=== PATIENT | male | born 1965 | race Caucasian/White ===

== ENCOUNTER 2021-04-02 00:15 | Inpatient (IN) ==
[2021-04-02] MEDS ORDERED: ONDANSETRON INJ 2 MG/ML 2 ML VIAL IV STA (00:54)
[2021-04-02] MEDS ORDERED: SODIUM CHLORIDE 0.9% 1000ML 1,000 ML IV SCH (01:00)
[2021-04-02 01:06] LABS: Basophils # (auto) 0.02 K/uL (0-0.2); Basophils % (auto) 0.2 %; Eosinophils # (auto) 0.04 K/uL (0-0.5); Eosinophils % (auto) 0.5 %; Hematocrit (blood only) 42.4 % (42-52); Hemoglobin 14.9 g/dL (14.0-18.0); Immature Granulocytes # (auto) 0.02 K/uL (0.00-0.02); Immature Granulocytes % (auto) 0.2 %; Lymphocytes # (auto) 0.86 K/uL (1.2-3.4); Lymphocytes % (auto) 10.7 %; Mean Corpuscular Hemoglobin 30.9 pg (25-34); Mean Corpuscular Hgb Conc 35.1 g/dL (32-36); Mean Platelet Volume 10.6 fL (7.4-10.4); Monocytes # (auto) 0.81 K/uL (0.11-0.59); Monocytes % (auto) 10.1 %; Neutrophils # (auto) 6.29 K/uL (1.4-6.5); Neutrophils % (auto) 78.3 %; Platelet Count 241 K/uL (130-400); RDW Coefficient of Variation 13.4 % (11.5-14.5); RDW Standard Deviation 43.2 fL (36.4-46.3); Red Blood Count 4.82 M/uL (4.7-6.1); White Blood Count 8.04 K/uL (4.8-10.8)
[2021-04-02 01:16] LABS: Appearance Urine Clear (Clear); Bacteria Urine Automated Negative (Negative); Bilirubin Urine Negative (Negative); Blood Urine Negative (Negative); Color Urine Dark Yellow; Glucose Urine UA Negative (Negative); Ketones Urine Trace (Negative); Leukocyte Esterase Urine Negative (Negative); Nitrite Urine Negative (Negative); Protein Urine 1+ (Negative); RBC Urine Automated 0-4 /hpf (0-4); Specific Gravity Urine 1.032 (1.000-1.030); Urobilinogen Urine Negative (Negative)
[2021-04-02 01:17] LABS: Albumin Level 3.7 gm/dl (3.4-5.0); BUN Creatinine Ratio 26.3 (10-20); Calcium 8.6 mg/dl (8.5-10.1); Est GFR (African American) 93.5 ml/min; Est GFR (Non-African American) 80.7 ml/min; Potassium 3.2 mmol/L (3.5-5.1)
[2021-04-02 01:20] LABS: Albumin Globulin Ratio 1.1 (0.9-2); Globulin 3.3 gm/dl (2.5-4.0)
--- NOTE | 2021-04-02 01:29 | Emergency Department Note ---
History of Present Illness General Chief complaint: GI Assessment Stated complaint: abd pain, bowel blockage Time Seen by Provider: 04/02/21 00:41 History of Present Illness Maximum Pain Intensity: 2 This is a 55-year-old male that presents to the emergency department via private vehicle accompanied by female with complaints of "abdominal pain, bowel blockage". The patient notes that Wednesday morning he developed abdominal discomfort. This was generalized. He notes that several members of his family have similar symptoms and believe that a GI bug was going through the family. He then notes severe diarrhea and vomiting. He notes the abdominal pain has been severe intermittently. He attempted to move his bowels today with very little success. Last vomiting was yesterday. He denies any rectal pain. He feels very bloated in the upper right abdomen. Current pain 2/10. The patient does note that he is concerned he may have an ulcer as he did have vomit that was consistent of a black-like liquid in the recent past. Home Medications Medication Instructions Recorded Confirmed Type amlodipine 10 mg tablet 10 mg PO DAILY 04/02/21 04/02/21 History omeprazole 20 mg capsule,delayed 20 mg PO DAILY PRN 04/02/21 04/02/21 History release Allergies Allergy/AdvReac Type Severity Reaction Status Date / Time No Known Allergies Allergy Unknown Verified 07/17/04 15:54 Past Med/Surg History Medical History History of hemochromatosis History of indigestion HTN (hypertension) Surgical History (Updated 04/02/21 @ 21:02 by Sanket Méndez PA-C) No pertinent past surgical history Social History Smoking Status: Never smoker Hx Alcohol Use: Yes Alcohol type: beer and wine Hx Substance Use: No Preferred Language: Pashto Communication Ability: Effective Radiation Protection Specialist Required: No Beliefs That Will Affect Care: None Current Living Situation: Spouse Other Information That Helps Us Care for You: No Feels Safe at Home: Yes Safety Concerns: Feels Safe At This Time Assistive Devices: None Review of Systems A total of 10 systems reviewed and were otherwise negative Physical Exam Vital Signs Vital Signs - 24 hr 04/02/21 00:19 04/02/21 01:57 04/02/21 03:44 Temperature 36.6 C Temperature Source Temporal Artery Scan Pulse Rate 96 H 100 H Pulse Rate [Apical] 86 Respiratory Rate 16 18 20 Respiratory Effort / Characteristics Non-Labored Spontaneous Respiratory Depth Normal Respiratory Pattern Regular Blood Pressure 205/93 H 180/101 H Blood Pressure [Right Arm] 123/80 Blood Pressure Mean 130 127 Blood Pressure Mean [Right Arm] 94 Blood Pressure Position Sitting Blood Pressure Position [Right Arm] Lying Pulse Oximetry 95 92 96 Oxygen Delivery Method Room Air Room Air Room Air Sepsis Recent Fever Within 48 Hours No Sepsis New/Unexplained Change in Mental Status No Sepsis Action Taken by Nursing No Action Required 04/02/21 04:00 04/02/21 04:30 Temperature Temperature Source Pulse Rate 87 91 H Pulse Rate [Apical] Respiratory Rate 16 Respiratory Effort / Characteristics Respiratory Depth Respiratory Pattern Blood Pressure 151/89 H Blood Pressure [Right Arm] Blood Pressure Mean 109 Blood Pressure Mean [Right Arm] Blood Pressure Position Blood Pressure Position [Right Arm] Pulse Oximetry 93 Oxygen Delivery Method Room Air Sepsis Recent Fever Within 48 Hours Sepsis New/Unexplained Change in Mental Status Sepsis Action Taken by Nursing VITAL SIGNS - Vital signs and nursing notes were reviewed. Stable and afebrile. GENERAL -55-year-old male appearing his stated age who is in no acute distress. Communicates well with provider and answers questions appropriately. SKIN - Without rashes. No meningeal or petechial rash. HEAD - NC/AT. EYES - PERRL with EOMI bilaterally. Sclera anicteric. EARS - No deformities of external structures noted on gross examination bilater ally. NOSE - Midline and without cyanosis. No epistaxis or purulent drainage noted. MOUTH/OROPHARYNX - Without perioral cyanosis. NECK - Neck with FROM. No nuchal rigidity. LUNGS - Chest wall symmetric without accessory muscle use, intercostals retractions, or central cyanosis. Normal vesicular breath sounds CTA B/L. No wheezes, rales, or rhonchi appreciated. CARDIAC - RRR with S1/S2. No murmur, rubs, or gallops appreciated. ABDOMEN - Abdominal contour normal without pulsations or visible masses. BS normoactive all four quadrants. Abdomen is tympanic in the right upper quadrant with distention. Abdomen is nonrigid but is with generalized abdominal tenderness to palpation. EXTREMITIES - +5/5 strength noted in UE/LE bilaterally. NEUROLOGIC - Cranial nerves II through XII grossly intact. PSYCH - A&O, and cooperates fully with examiner. Pt is very pleasant and interacts well with examiner. Course Administered Medications Amlodipine Besylate (Amlodipine Besylate 5 Mg Tab) 10 mg PO QAM [facility]IS[facility] Stop: 05/02/21 08:59 Last Admin: 04/02/21 09:49 Dose: 10 mg Documented by: [id number] Pantoprazole Sodium 40 mg/ (Syringe) 10 mls @ 5 mls/min IV DAILY@1100 [facility]I Stop: 05/02/21 10:59 Last Admin: 04/02/21 11:07 Dose: 5 mls/min Documented by: [id number] Potassium Chloride/Sodium Chloride (Normal Saline W/20 Meq Kcl) 20 meq in 1,000 mls @ 125 mls/hr IV .Q8H [facility]ISI Stop: 05/02/21 11:29 Last Admin: 04/02/21 19:29 Dose: 125 mls/hr Documented by: [id number] Infusion: 04/02/21 19:29 Dose: 125 mls/hr Documented by: [id number] Admin: 04/02/21 11:41 Dose: 125 mls/hr Documented by: [id number] Insulin Aspart (Insulin Aspart 100 Units/Ml 3 Ml Pen) 0 units SC Q6 [facility]ISI Stop: 05/02/21 06:44 Last Admin: 04/02/21 18:03 Dose: Not Given Documented by: [id number] Cosigned by: [id number] Admin: 04/02/21 12:30 Dose: Not Given Documented by: [id number] Cosigned by: [id number] Admin: 04/02/21 09:48 Dose: 2 units Documented by: [id number] Cosigned by: [id number] Discontinued Medications Hydralazine HCl (Hydralazine Hcl 20 Mg/Ml Vial) 5 mg IV NOW [facility] Stop: 04/02/21 04:16 Last Admin: 04/02/21 05:23 Dose: Not Given Documented by: [id number] Sodium Chloride (Nss 1000ml) 1,000 mls @ 999 mls/hr IV .Q1H1M [facility]ISI Stop: 04/02/21 02:00 Last Infusion: 04/02/21 02:22 Dose: 0 mls/hr Documented by: [id number] Admin: 04/02/21 01:03 Dose: 999 mls/hr Documented by: [id number] Potassium Chloride 40 meq/ (Sodium Chloride) 1,020 mls @ 250 mls/hr IV .Q4H5M STA Stop: 04/02/21 07:37 Last Infusion: 04/02/21 08:30 Dose: 0 mls/hr Documented by: [id number] Admin: 04/02/21 03:56 Dose: 250 mls/hr Documented by: [id number] Pantoprazole Sodium 80 mg/ (Dextrose) 120 mls @ 400 mls/hr IV NOW STA Stop: 04/02/21 05:22 Last Infusion: 04/02/21 07:41 Dose: 0 mls/hr Documented by: [id number] Admin: 04/02/21 05:20 Dose: 400 mls/hr Documented by: [id number] Pantoprazole Sodium 40 mg/ (Dextrose) 100 mls @ 20 mls/hr IV Q5H [facility] Stop: 05/02/21 06:44 Last Admin: 04/02/21 08:30 Dose: Not Given Documented by: [id number] Potassium Chloride 40 meq/ (Sodium Chloride) 1,020 mls @ 60 mls/hr IV .Q17H [facility]ISI Stop: 05/02/21 07:59 Last Infusion: 04/02/21 11:44 Dose: 0 mls/hr Documented by: [id number] Admin: 04/02/21 08:28 Dose: 60 mls/hr Documented by: [id number] Insulin Glargine (Insulin Glargine Solostar 100 Units/Ml 3 Ml Pen) 5 units SC NOW STA Stop: 04/02/21 06:28 Last Admin: 04/02/21 09:40 Dose: Not Given Documented by: [id number] Ioversol (Optiray 320 100ml) 100 ml IV ONCE ONE Stop: 04/02/21 01:43 Last Admin: 04/02/21 01:43 Dose: 94 ml Documented by: [id number] Ondansetron HCl (Ondansetron Inj 2 Mg/Ml 2 Ml Vial) 4 mg IV NOW STA Stop: 04/02/21 00:55 Last Admin: 04/02/21 01:03 Dose: 4 mg Documented by: [id number] Medical Decision Making Laboratory Data Result diagrams: 04/02/21 17:57 04/02/21 00:40 Lab Results 04/02/21 04/02/21 04/02/21 Range/Units 00:40 00:40 00:40 WBC 8.04 (4.8-10.8) K/uL RBC 4.82 (4.7-6.1) M/uL Hgb 14.9 (14.0-18.0) g/dL Hct 42.4 (42-52) % MCV 88.0 (80-100) fL MCH 30.9 (25-34) pg MCHC 35.1 (32-36) g/dL RDW Std Deviation 43.2 (36.4-46.3) fL RDW Coeff of Lilibeth 13.4 (11.5-14.5) % Plt Count 241 (130-400) K/uL MPV 10.6 H (7.4-10.4) fL Immature Gran % (Auto) 0.2 % Neut % (Auto) 78.3 % Lymph % (Auto) 10.7 % [place] % (Auto) 10.1 % Eos % (Auto) 0.5 % Baso % (Auto) 0.2 % Neut # (Auto) 6.29 (1.4-6.5) K/uL Lymph # (Auto) 0.86 L (1.2-3.4) K/uL [place] # (Auto) 0.81 H (0.11-0.59) K/uL Eos # (Auto) 0.04 (0-0.5) K/uL Baso # (Auto) 0.02 (0-0.2) K/uL Immature Gran # (Auto) 0.02 (0.00-0.02) K/uL Sodium 137 (136-145) mmol/L Potassium 3.2 L (3.5-5.1) mmol/L Chloride 104 (98-107) mmol/L Carbon Dioxide 29 (21-32) mmol/L Anion Gap 4.0 (3-11) BUN 28 H (7-18) mg/dl Creatinine 1.05 (0.6-1.4) mg/dl Est Cr Clr Drug Dosing 91.0 ml/min Est GFR ( Amer) 93.5 ml/min Est GFR (Non-Af Amer) 80.7 ml/min BUN/Creatinine Ratio 26.3 H (10-20) Glucose 256 H (70-99) mg/dl Estimat Average Glucose 160 mg/dl Hemoglobin A1c 7.2 H (4.5-5.6) % Calcium 8.6 (8.5-10.1) mg/dl Magnesium 2.0 (1.8-2.4) mg/dl Total Bilirubin 1.0 (0.2-1) mg/dl AST 16 (15-37) U/L ALT 30 (12-78) U/L Alkaline Phosphatase 66 (45-117) U/L Total Protein 7.0 (6.4-8.2) gm/dl Albumin 3.7 (3.4-5.0) gm/dl Globulin 3.3 (2.5-4.0) gm/dl Albumin/Globulin Ratio 1.1 (0.9-2) Lipase 94 (73-393) U/L Urine Color Urine Appearance (Clear) Urine pH (4.5-7.5) Ur Specific [place] (1.000-1.030) Urine Protein (Negative) Urine Glucose (UA) (Negative) Urine Ketones (Negative) Urine Blood (Negative) Urine Nitrite (Negative) Urine Bilirubin (Negative) Urine Urobilinogen (Negative) Ur Leukocyte Esterase (Negative) Urine WBC (Auto) (0-5) /hpf Urine RBC (Auto) (0-4) /hpf U Hyaline Cast (Auto) (0-5) /lpf U Epithel Cells (Auto) (0-5) /lpf Urine Bacteria (Auto) (Negative) COVID-19 Eval Order SARS-CoV-2 (PCR) (Negative) 04/02/21 04/02/21 04/02/21 Range/Units 00:43 03:43 03:43 WBC (4.8-10.8) K/uL RBC (4.7-6.1) M/uL Hgb (14.0-18.0) g/dL Hct (42-52) % MCV (80-100) fL MCH (25-34) pg MCHC (32-36) g/dL RDW Std Deviation (36.4-46.3) fL RDW Coeff of Lilibeth (11.5-14.5) % Plt Count (130-400) K/uL MPV (7.4-10.4) fL Immature Gran % (Auto) % Neut % (Auto) % Lymph % (Auto) % [place] % (Auto) % Eos % (Auto) % Baso % (Auto) % Neut # (Auto) (1.4-6.5) K/uL Lymph # (Auto) (1.2-3.4) K/uL [place] # (Auto) (0.11-0.59) K/uL Eos # (Auto) (0-0.5) K/uL Baso # (Auto) (0-0.2) K/uL Immature Gran # (Auto) (0.00-0.02) K/uL Sodium (136-145) mmol/L Potassium (3.5-5.1) mmol/L Chloride (98-107) mmol/L Carbon Dioxide (21-32) mmol/L Anion Gap (3-11) BUN (7-18) mg/dl Creatinine (0.6-1.4) mg/dl Est Cr Clr Drug Dosing ml/min Est GFR ( Amer) ml/min Est GFR (Non-Af Amer) ml/min BUN/Creatinine Ratio (10-20) Glucose (70-99) mg/dl Estimat Average Glucose mg/dl Hemoglobin A1c (4.5-5.6) % Calcium (8.5-10.1) mg/dl Magnesium (1.8-2.4) mg/dl Total Bilirubin (0.2-1) mg/dl AST (15-37) U/L ALT (12-78) U/L Alkaline Phosphatase (45-117) U/L Total Protein (6.4-8.2) gm/dl Albumin (3.4-5.0) gm/dl Globulin (2.5-4.0) gm/dl Albumin/Globulin Ratio (0.9-2) Lipase (73-393) U/L Urine Color Dark Yellow Urine Appearance Clear (Clear) Urine pH 6.0 (4.5-7.5) Ur Specific [place] 1.032 H (1.000-1.030) Urine Protein 1+ H (Negative) Urine Glucose (UA) Negative (Negative) Urine Ketones Trace H (Negative) Urine Blood Negative (Negative) Urine Nitrite Negative (Negative) Urine Bilirubin Negative (Negative) Urine Urobilinogen Negative (Negative) Ur Leukocyte Esterase Negative (Negative) Urine WBC (Auto) 1-5 (0-5) /hpf Urine RBC (Auto) 0-4 (0-4) /hpf U Hyaline Cast (Auto) 1-5 (0-5) /lpf U Epithel Cells (Auto) 10-20 H (0-5) /lpf Urine Bacteria (Auto) Negative (Negative) COVID-19 Eval Order Covid19 at [facility] SARS-CoV-2 (PCR) NEGATIVE (Negative) Imaging Data Radiologist's Impression: Abdomen/Pelvis CT 04/02/21 00:[address] WITH IV CONTRAST CT DOSE: 699.26 mGy.cm HISTORY: Generalized abd pain, bloating, nausea, vomiting TECHNIQUE: Multiaxial CT images of the abdomen and pelvis were performed following the use of intravenous contrast. A dose lowering technique was util ized adhering to the principles of ALARA. COMPARISON STUDY: None. FINDINGS: Mild dependent changes noted within the lung bases. No pneumoperitoneum. No pneumatosis. No fractures within the visualized osseous structures. A few small gallstones. No gallbladder wall thickening. Moderate patchy steatosis. A few scattered hypodense lesions within the liver measuring up to 1.3 cm. These favor cysts. The spleen is at the upper limits of normal for size. The adrenal glands and pancreas are unremarkable. Multiple small bilateral renal calculi. No ureteral calculi. No hydronephrosis. Normal caliber abdominal aorta. No retroperitoneal lymphadenopathy. The bladder is unremarkable. The prostate gland is mildly enlarged. There is a small fat-containing left inguinal hernia. Normal appendix. Dilated proximal to mid small bowel loops with decompressed distal ileal loops. Findings are consistent with a small bowel obstruction. The dilated loops of small bowel measure up to 4.3 cm in diameter. Transition point is likely located within the right lower quadrant within the ileal loops. IMPRESSION: 1. Dilated proximal to mid small bowel loops with decompressed distal ileal loops consistent with a small bowel obstruction. 2. Bilateral nephrolithiasis. No ureteral stones. No hydronephrosis. 3. Normal appendix. 4. Cholelithiasis. 5. Additional findings as described above. ACT 112: Negative or not required by law. Electronically signed by: Beny Velarde M.D. 04/02/2021 7:[address] ABDOMEN & PELVIS With Contrast: Dilated small bowel loops with decompressed distal segments, findings suggest small bowel obstruction. Small low-attenuation foci in the liver. Cholelithiasis/debris Bilateral nephrolithiasis Fat-containing left inguinal hernia. No evidence of colitis. Unremarkable appendix. Radiologist: Noelle Carpenter M.D. Study ready at 01:51 and initial results transmitted at 01:54 MDM Narrative Patient was seen and evaluated as above in room C02. Review was performed of nursing notes and vital signs. After obtaining a thorough history and physical examination the above work up was performed. Patient presents to us today with abdominal pain, nausea and vomiting. He is nontoxic on examination but the abdomen is with bloating/visible distention and palpable distention in the right upper quadrant region. No active vomiting at this present time. Vital signs overall stable. Options of care were discussed with the patient. IV access was established. Labs were drawn. No leukocytosis. No anemia. No emergent metabolic disturbance. Urinalysis without infection. Covid testing negative. CT scan was obtained of the abdomen and pelvis after discussing benefit versus risk. CT scan report as above and was initially read by stat rad. This indicated a small bowel obstruction. This does clinically correlate with the patient's symptoms. With the patient having recent vomiting and with him having a fair amount of bloating on examination benefit versus risk of NG tube placement discussed. It is felt that the benefit at this time outweighs the risk. Patient amenable to proceeding with NG tube placement. Order was placed. I also discussed the findings with the attending physician as well as the on-call general surgery team. Patient was evaluated by the general surgery team. I also discussed the case with the hospitalist as it is felt that the patient would benefit from inpatient management at this time. Please refer to further documentation regarding his stay. GCS: 15 In the evaluation and treatment of this patient the following differential diagnoses were entertained: Small bowel obstruction, gastroenteritis, acute cholecystitis, pancreatitis, upper GI bleed, esophageal varices, mass, malignancy, among others. Impression & Plan Small bowel obstruction Discharge Plan Visit Data Chief Complaint: GI Assessment Stated Complaint: abd pain, bowel blockage ED Provider: Tierra Agudelo ED Midlevel Provider: Sanket Méndez Discharge Problem: Small bowel obstruction Patient Disposition: Admitted As Inpatient Discharge Instructions Interventions: ED Discharge Assessment Last Done: 04/02/21 05:44
[2021-04-02] MEDS ORDERED: OPTIRAY 320 100ml IV ONE (01:42)
[2021-04-02] MEDS ORDERED: POTASSIUM CHLORIDE 40 MEQ in SODIUM CHLORIDE 0.9% 1000ML 1,000 ML IV STA (03:33)
--- NOTE | 2021-04-02 03:37 | Surgery Consultation ---
Date of Consultation April 02, 2021 Assessment & Plan (1) Small bowel obstruction: Patient is being admitted to the hospital on the medical service. We recommend proceeding as follows: Provide analgesics Provide antiemetics Maintain n.p.o. status Provide hydration with IV fluids As patient has had nausea and vomiting and demonstrates abdominal distention feel the patient would benefit from NG tube decompression. The patient is agreeable to this and the treating clinician the emergency department has already ordered this modality Recommend supplementing the patient's potassium due to hypokalemia Stool culture has been requested and stool for C. difficile has also been requested. We will follow for the results of the studies I have discussed the condition with the patient. I discussed with him the most common etiologies of small bowel obstruction. Is unlikely that the patient has adhesions as he has had no prior abdominal surgeries. I did also not appreciate any hernias. It is possible that his small bowel obstruction may be related to his recent gastroenteritis. I discussed with him the management of his condition including the modalities listed above. I informed him that once NG tube is placed this modality will likely stay in place until his abdominal d istention improves, or he begins passing flatus and moving his bowels. Once patient has improvement of bowel function we would then remove his NG tube and institute a diet beginning with clear liquids slowly progressing as tolerated. Told him to try to manage this condition in a conservative manner initially. Patient recommendations were forthcoming based on his clinical course as it unfolds. Additional recommendations as directed by primary medical service We will continue following with the patient is hospitalized as above. feeling better already. less distension. no pain now. NGT with mostly saliva...no bile/gastric acid will recheck kub tomorrow...if improved with try clampiong trial. keep ngt for now. History of Present Illness Reason for Consultation: Small bowel obstruction History of Present Illness This is a 55-year-old male who presented to [facility] secondary to abdominal distention and discomfort. Patient notes that he recently had a gastroenteritis and since that time has had trouble moving his bowels. Over the past 24 hours the patient had nausea vomiting and some generalized abdominal discomfort. He notes that the pain was located throughout his abdomen in a generalized fashion was not in any pinpoint or discrete areas. He notes that the pain did not radiate. He notes that there is no palliative or provocative factors concerning his pain. In addition the patient says that he felt as though he needed to have a bowel movement and sat on the commode for nearly 2 hours but was unable to pass any flatus to move his bowels. He is also noted some worsening abdominal distention so he presented to the emergency department. Patient notes that he does have a history of hemochromatosis. He denies any prior abdominal surgeries. He has never had a small bowel obstruction in the past. He notes that he has had a colonoscopy to the best of his knowledge did not have any significant pathology on this study. Since arrival to the emergency department patient had labs and imaging which I independently reviewed. CBC revealed white blood cell count, hemoglobin, hematocrit, platelet count were all within the normal range. Chemistry profile showed sodium was normal and potassium was low at 3.2. His BUN was elevated at 28 and creatinine was normal at 1.05. There is no significant elevation of LFTs or lipase. Urinalysis was not indicative of infection. Patient also underwent a CT scan of the abdomen and pelvis with intravenous contrast. The study showed the patient had some dilated small bowel loops with some decompressed distal small bowel which was concerning for small bowel obstruction. At the time of my interview the patient was resting comfortably in bed. He was in no distress Allergies Allergy/AdvReac Type Severity Reaction Status Date / Time No Known Allergies Allergy Unknown Verified 07/17/04 15:54 Home Medications Medication Instructions Recorded Confirmed Type amlodipine 10 mg tablet 10 mg PO DAILY 04/02/21 04/02/21 History omeprazole 20 mg capsule,delayed 20 mg PO DAILY PRN 04/02/21 04/02/21 History release Patient History Social History Smoking Status: Never smoker Hx Alcohol Use: Yes Alcohol type: beer and wine Hx Substance Use: No Preferred Language: [place]ese Communication Ability: Effective Plastic Surgery Assistant Required: No Beliefs That Will Affect Care: None Current Living Situation: Spouse Other Information That Helps Us Care for You: No Feels Safe at Home: Yes Safety Concerns: Feels Safe At This Time Assistive Devices: None Past Medical History Medical history: Reports hypertension and other (Elevated glucose, hemochromatosis) Surgical history: Reports no surgical history Review of Systems Constitutional: no fever and no chills Eyes: no diplopia Ear, Nose, Mouth, Throat: no ear pain Respiratory: no cough and no dyspnea Cardiovascular: no chest pain Gastrointestinal: + abdominal pain, + nausea, + vomiting and + constipation Genitourinary: no dysuria Musculoskeletal: no back pain Integumentary: no rash Neurologic: no localized weakness Physical Exam Constitutional: well developed and well nourished; no acute distress Eyes: no conjunctival abnormality ENMT: Ears: no hearing impairment and no external ear abnormality Neck: trachea midline Respiratory: normal respiratory effort, lungs clear to auscultation Cardiovascular: Rate/Rhythm: regular rate and regular rhythm Gastrointestinal (Abdomen): Abdomen has mild to moderate distention. Bowel sounds are markedly hypoactive. Patient's abdomen is tympanic to percussion. There is no rebound tenderness or guarding. There is some generalized pain with palpation but no point tenderness. Did not appreciate any hernias on exam. Musculoskeletal: No calf tenderness, no gross orthopedic abnormalities Skin: no rashes Neurologic: moves all extremities Psychiatric: A+Ox3, euthymic affect Results & Data ([facility]) Vital Signs (Past 12 Hours) Vital Signs Temp Pulse Pulse Resp BP BP Pulse Ox 04/02/21 01:57 86 18 123/80 92 04/02/21 00:19 36.6 C 96 H 16 205/93 H 95 PG Care Time/CCT Total # of Minutes Spent Total Time Spent with Patient: Total time spent is greater than 50% in coordination of care (as documented) at patient's floor/unit and/or counseling patient: Coding Level of Care Code 57799 Inpt Consult Level 5 Diagnoses Small bowel obstruction K56.609
[2021-04-02] MEDS ORDERED: hydrALAZINE HCL 20 MG/ML VIAL IV STA (04:15)
--- NOTE | 2021-04-02 04:52 | History & Physical Report ---
Date of Service April 02, 2021 Assessment & Plan (1) UGIB (upper gastrointestinal bleed): Plan: Secondary to SBO (No prior abdominal surgeries as per patient of note.) Likely from gastritis. hx GERD as per records Patient currently hemodynamically stable. hypertension, slightly elevated secondary to illness hemochromatosis, splenomegaly/increased hepatic echotexture on outpatient abdominal ultrasound. [place]ic [place] [facility] [place]. DM2 diet-controlled, noncompliant with Metformin Rx. Last hemoglobin A1c of 7.15 August 2020 Medical telemetry IV PPI GI consult Re: UGI B Serial H&H, transfuse PRBC if hemoglobin less than 7 and or for symptomatic anemia (Patient however unwilling to sign consent in anticipation of blood transfusion for now.) Continue NGT decompression Surgery consult Re: SBO (Patient already seen by provider telephone maintenance mechanic at the ER.) Basal insulin adjusted for n.p.o. status, ISS BG goal 1 10-1 40, update hemoglobin A1c DVT prophylaxis. SCDs Re: GI bleed Full code Patient's requesting updates from providers. Kirstie Guadarramadwain, contact #[phone]. Text document was generated using [employer] voice recognition software. It may contain grammatical or spelling errors. Kindly contact undersigned for clarification of any documentation item in question. History of Present Illness Chief Complaint: Abdominal pain Primary Care Provider: Kristopher Maguire MD History obtained from patient, family, and records. Medical history significant for hypertension, hyperlipidemia, hemochromatosis, GERD, DM2 diet-controlled 3 days history of generalized abdominal pain with coffee-ground emesis and dark stool diarrhea. Sick contacts at age constitution party as per patient. Patient denies chest pain, S OB, fever, chills. No prior episodes. Denies OTC NSAID intake. NGT inserted at the ER for bowel obstruction on initial CT read. Medical History as above 2011 EGD possible Trevino's esophagus 2019 colonoscopy showed diverticulosis, internal hemorrhoids Surgical History : Dental surgery Family History : Hemochromatosis, hypertension, prostate cancer, hyperlipidemia Personal/Social history : Non-smoker, no EtOH intake, [employer] employee Allergies Allergy/AdvReac Type Severity Reaction Status Date / Time No Known Allergies Allergy Unknown Verified 07/17/04 15:54 Home Medications Medication Instructions Recorded Confirmed Type amlodipine 10 mg tablet 10 mg PO DAILY 04/02/21 04/02/21 History omeprazole 20 mg capsule,delayed 20 mg PO DAILY PRN 04/02/21 04/02/21 History release Past Med/Surg History Social History Smoking Status: Never smoker Hx Alcohol Use: Yes Alcohol type: beer and wine Hx Substance Use: No Preferred Language: Senegalese Communication Ability: Effective Production Administrator Required: No Beliefs That Will Affect Care: None Current Living Situation: Spouse Other Information That Helps Us Care for You: No Feels Safe at Home: Yes Safety Concerns: Feels Safe At This Time Assistive Devices: None Review of Systems Review of Systems: As per HPI, all 10 systems reviewed, all other ROS negative Physical Exam Physical Exam: GENERAL: Slightly anxious, no respiratory distress SKIN: Bronze skin, warm HEENT: O'Brien palpebral conjunctivae, no ptosis, dry buccal mucosa, NGT in place NECK : Supple, no tenderness CHEST : CTA, no tenderness HEART : RRR, no obvious murmurs ABDOMEN: Some distention, no overt tenderness RECTAL : Intact sphincter, dark stool (FOBT positive) EXTREMITIES : No LE swelling/tenderness, no other conspicuous deformities noted NEUROLOGIC : Coherent, no facial asymmetry, no other gross focality Results & Data Results & Data ([facility]) Vital Signs (Past 12 Hours) Vital Signs Temp Pulse Pulse Resp BP BP Pulse Ox 04/02/21 04:30 91 H 151/89 H 93 04/02/21 04:00 87 16 04/02/21 03:44 100 H 20 180/101 H 96 04/02/21 01:57 86 18 123/80 92 04/02/21 00:19 36.6 C 96 H 16 205/93 H 95 Laboratory Results Laboratory Results WBC 8.04 K/uL (4.8-10.8) 04/02/21 00:40 RBC 4.82 M/uL (4.7-6.1) 04/02/21 00:40 Hgb 14.9 g/dL (14.0-18.0) 04/02/21 00:40 Hct 42.4 % (42-52) 04/02/21 00:40 MCV 88.0 fL (80-100) 04/02/21 00:40 MCH 30.9 pg (25-34) 04/02/21 00:40 MCHC 35.1 g/dL (32-36) 04/02/21 00:40 RDW Std Deviation 43.2 fL (36.4-46.3) 04/02/21 00:40 RDW Coeff of Lilibeth 13.4 % (11.5-14.5) 04/02/21 00:40 Plt Count 241 K/uL (130-400) 04/02/21 00:40 MPV 10.6 fL (7.4-10.4) H 04/02/21 00:40 Immature Gran % (Auto) 0.2 % 04/02/21 00:40 Neut % (Auto) 78.3 % 04/02/21 00:40 Lymph % (Auto) 10.7 % 04/02/21 00:40 [place] % (Auto) 10.1 % 04/02/21 00:40 Eos % (Auto) 0.5 % 04/02/21 00:40 Baso % (Auto) 0.2 % 04/02/21 00:40 Neut # (Auto) 6.29 K/uL (1.4-6.5) 04/02/21 00:40 Lymph # (Auto) 0.86 K/uL (1.2-3.4) L 04/02/21 00:40 [place] # (Auto) 0.81 K/uL (0.11-0.59) H 04/02/21 00:40 Eos # (Auto) 0.04 K/uL (0-0.5) 04/02/21 00:40 Baso # (Auto) 0.02 K/uL (0-0.2) 04/02/21 00:40 Immature Gran # (Auto) 0.02 K/uL (0.00-0.02) 04/02/21 00:40 Sodium 137 mmol/L (136-145) 04/02/21 00:40 Potassium 3.2 mmol/L (3.5-5.1) L 04/02/21 00:40 Chloride 104 mmol/L (98-107) 04/02/21 00:40 Carbon Dioxide 29 mmol/L (21-32) 04/02/21 00:40 Anion Gap 4.0 (3-11) 04/02/21 00:40 BUN 28 mg/dl (7-18) H 04/02/21 00:40 Creatinine 1.05 mg/dl (0.6-1.4) 04/02/21 00:40 Est Cr Clr Drug Dosing 91.0 ml/min 04/02/21 00:40 Est GFR ( Amer) 93.5 ml/min 04/02/21 00:40 Est GFR (Non-Af Amer) 80.7 ml/min 04/02/21 00:40 BUN/Creatinine Ratio 26.3 (10-20) H 04/02/21 00:40 Glucose 256 mg/dl (70-99) H 04/02/21 00:40 Calcium 8.6 mg/dl (8.5-10.1) 04/02/21 00:40 Magnesium 2.0 mg/dl (1.8-2.4) 04/02/21 00:40 Total Bilirubin 1.0 mg/dl (0.2-1) 04/02/21 00:40 AST 16 U/L (15-37) 04/02/21 00:40 ALT 30 U/L (12-78) 04/02/21 00:40 Alkaline Phosphatase 66 U/L (45-117) 04/02/21 00:40 Total Protein 7.0 gm/dl (6.4-8.2) 04/02/21 00:40 Albumin 3.7 gm/dl (3.4-5.0) 04/02/21 00:40 Globulin 3.3 gm/dl (2.5-4.0) 04/02/21 00:40 Albumin/Globulin Ratio 1.1 (0.9-2) 04/02/21 00:40 Lipase 94 U/L (73-393) 04/02/21 00:40 Urine Color Dark Yellow 04/02/21 00:43 Urine Appearance Clear (Clear) 04/02/21 00:43 Urine pH 6.0 (4.5-7.5) 04/02/21 00:43 Ur Specific [place] 1.032 (1.000-1.030) H 04/02/21 00:43 Urine Protein 1+ (Negative) H 04/02/21 00:43 Urine Glucose (UA) Negative (Negative) 04/02/21 00:43 Urine Ketones Trace (Negative) H 04/02/21 00:43 Urine Blood Negative (Negative) 04/02/21 00:43 Urine Nitrite Negative (Negative) 04/02/21 00:43 Urine Bilirubin Negative (Negative) 04/02/21 00:43 Urine Urobilinogen Negative (Negative) 04/02/21 00:43 Ur Leukocyte Esterase Negative (Negative) 04/02/21 00:43 Urine WBC (Auto) 1-5 /hpf (0-5) 04/02/21 00:43 Urine RBC (Auto) 0-4 /hpf (0-4) 04/02/21 00:43 U Hyaline Cast (Auto) 1-5 /lpf (0-5) 04/02/21 00:43 U Epithel Cells (Auto) 10-20 /lpf (0-5) H 04/02/21 00:43 Urine Bacteria (Auto) Negative (Negative) 04/02/21 00:43 COVID-19 Eval Order Covid19 at [facility] 04/02/21 03:43 SARS-CoV-2 (PCR) NEGATIVE (Negative) 04/02/21 03:[address] abdomen pelvis initial read: Dilated small bowel loopswith decompressed distal segments, findings suggest small bowel obstruction. Small low-attenuation foci in the liver. Cholelithiasis/debris Bilateral nephrolithiasis Fat-containing left inguinal hernia. No evidence of colitis. Unremarkable appendix.
[2021-04-02] MEDS ORDERED: PANTOprazole 80 MG in DEXTROSE 5% 100 ML IV STA (05:05)
[2021-04-02 05:34] LABS: Hematocrit (blood only) 41.7 % (42-52); Hemoglobin 14.4 g/dL (14.0-18.0); INR 1.1 (0.9-1.1); Prothrombin Time 10.8 Seconds (9.0-12.0)
[2021-04-02] MEDS ORDERED: PROMETHAZINE HCL 12.5 MG in SODIUM CHLORIDE 0.9% 50 ML IV PRN (06:27)
[2021-04-02] MEDS ORDERED: DEXTROSE 50% 50 ML SYRINGE IV PRN (06:27)
[2021-04-02] MEDS ORDERED: GLUCOSE 40% GEL 15 GM TUBE PO PRN (06:27)
[2021-04-02] MEDS ORDERED: ACETAMINOPHEN 1000 MG/100 ML IV IV PRN (06:27)
[2021-04-02] MEDS ORDERED: GLUCOSE 10 TABS/TUBE PO PRN (06:27)
[2021-04-02] MEDS ORDERED: INSULIN GLARGINE SOLOSTAR 100 UNITS/ML 3 ML PEN SC STA (06:27)
[2021-04-02] MEDS ORDERED: GLUCAGON FOR INJ 1 MG VIAL SQ PRN (06:27)
[2021-04-02] MEDS ORDERED: CARBOHYDRATES FOR HYPOGLYCEMIA PO PRN (06:27)
[2021-04-02] MEDS ORDERED: LORazepam 0.5 MG/1 ML VIAL IV PRN (06:27)
[2021-04-02] MEDS ORDERED: ACETAMINOPHEN 1,000 MG/100 ML VIAL IV PRN (06:45)
[2021-04-02] MEDS ORDERED: PANTOprazole 40 MG in DEXTROSE 5% 100 ML IV SCH (06:45)
--- NOTE | 2021-04-02 07:44 | CT Scan Report ---
ABDOMEN AND PELVIS CT WITH IV CONTRAST CT DOSE: 699.26 mGy.cm HISTORY: Generalized abd pain, bloating, nausea, vomiting TECHNIQUE: Multiaxial CT images of the abdomen and pelvis were performed following the use of intrave nous contrast. A dose lowering technique was utilized adhering to the principles of ALARA. COMPARISON STUDY: None. FINDINGS: Mild dependent changes noted within the lung bases. No pneumoperitoneum. No pneumatosis. No fractures within the visualized osseous structures. A few small gallstones. No gallbladder wall thic kening. Moderate patchy steatosis. A few scattered hypodense lesions within the liver measuring up to 1.3 cm. These favor cysts. The spleen is at the upper limits of normal for size. The adrenal glands and pancreas are unremarkable. Multiple small bilateral renal calculi. No ureteral calculi. No hydron ephrosis. Normal caliber abdominal aorta. No retroperitoneal lymphadenopathy. The bladder is unremark able. The prostate gland is mildly enlarged. There is a small fat-containing left inguinal hernia. No rmal appendix. Dilated proximal to mid small bowel loops with decompressed distal ileal loops. Findin gs are consistent with a small bowel obstruction. The dilated loops of small bowel measure up to 4.3 cm in diameter. Transition point is likely located within the right lower quadrant within the ileal l oops. IMPRESSION: 1. Dilated proximal to mid small bowel loops with decompressed distal ileal loops consistent with a s mall bowel obstruction. 2. Bilateral nephrolithiasis. No ureteral stones. No hydronephrosis. 3. Normal appendix. 4. Cholelithiasis. 5. Additional findings as described above. ACT 112: Negative or not required by law. Electronically signed by: Beny Velarde M.D. 04/02/2021 7:43 AM
[2021-04-02 07:52] LABS: Estimated Average Glucose 160 mg/dl; Hemoglobin A1C 7.2 % (4.5-5.6)
[2021-04-02] MEDS ORDERED: POTASSIUM CHLORIDE 40 MEQ in SODIUM CHLORIDE 0.9% 1000ML 1,000 ML IV SCH (08:00)
[2021-04-02] MEDS: INSULIN ASPART 100 UNITS/ML 3 ML PEN SC SCH ×3 (09:48→18:03)
[2021-04-02] MEDS: amLODIPine BESYLATE 5 MG TAB PO SCH (09:49)
--- NOTE | 2021-04-02 09:52 | Gastrointestinal Consultation ---
Date of Consultation April 02, 2021 Assessment & Plan (1) Small bowel obstruction: Pt is a 55 y/o male with recent likely gastroenteritis, presented with n/v, abd pain, bloating. CT abd/pelvis w signs of possible SBO, transition point on RLQ area. No hx of IBD, abd surgeries, colorectal ca in family. Not on chronic narcotics. UTD on colonoscopy done in 2019. There was a concern for possible GI bleed as pt reports black vomitus x 3 days ago. However NGT output currently showed clear gastric fluid in small amt, also noted normal blood ct, no significant rise in BUN. Thus not likely having active GI bleeding. - NPO - Trial clamp NGT - PPI IV daily - Defer endoscopies at this time - OOB, ambulate, keep K >4 to promote GI motility, avoid narcotics - KUB in AM - Surgery consulted for SBO Supervising Physician Co-Signing Physician Notes Patient does not endorse any recurrent episodes of hematemesis PE - ng tube in, abd soft Labs/imaging reviewed- stable hgb, no signficant bun rise, no underlying diag nosis of chronic liver disease Agree with IV PPI, surgical input for sbo. History of Present Illness Reason for Consultation: ? GI bleed Requesting Physician: Dr. Ivan Moyer Attending Physician: Dr. Destiny Lou History of Present Illness Pt is a 55 y/o male w hx of GERD, esophagitis seen on previous EGDs in ; HTN, HLD, hemochromatosis (managed by Heme/onc) who presented yesterday w c/o abd pain and bloating x 1 days. He went to a birthday republic[employer] over the weekend. Said must have caught a "GI bug" along with several other republican attenders. Started having n/v 2 days ago along w diarrhea. He noticed 1 episode of black vomitus 2 days ago and none after that. Yesterday, started to notice abd pain, bloating and difficulty passing BM though he managed to have small amt of stool and is passing little amt of flatus. On eval, he was noted to have signs of dilated small bowel loops concerning for SBO in CT scan w transition point on RLQ area. He denies hx of abdominal surgery, nor narcotic uses, denies hx of constipation and said BM usually very regular. He had recent colonoscopy last year, hx of diverticulosis, hyperplastic colon polyps, int hemorrhoids. No family hx of colorectal ca or IBD. He reports abd pain is improved today. No more n/v since ED admission last night. Passing little flatus w/o stools. NGT output <100mL , clear fluid. 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 Beliefs That Will Affect Care: None Current Living Situation: Spouse Other Information That Helps Us Care for You: No Feels Safe at Home: Yes Safety Concerns: Feels Safe At This Time Assistive Devices: None Review of Systems Review of Systems: All systems reviewed & are unremarkable except as noted in HPI & below Physical Exam Constitutional: WD/WN, vitals as above well groomed, cooperative and comfortable Eyes: PERRL, conjunctivae normal, anicteric sclerae ENMT: external ear and nose normal, oropharynx normal Respiratory: normal respiratory effort, lungs clear to auscultation Cardiovascular: RRR, no murmur, no edema Gastrointestinal (Abdomen): Soft, non tender, slightly tympanic on percussion, hypoactive BS on LLQ area Skin: no rashes, warm and dry no jaundice Psychiatric: A+Ox3, euthymic affect Lymphatic: no lymphedema Results & Data ([facility]) Vital Signs (Past 12 Hours) Vital Signs Temp Pulse Pulse Pulse Resp BP BP 04/02/21 07:50 36.3 C L 84 18 141/87 H 04/02/21 06:28 36.8 C 84 20 139/91 04/02/21 05:00 81 17 147/94 H 04/02/21 04:30 91 H 151/89 H 04/02/21 04:00 87 16 04/02/21 03:44 100 H 20 180/101 H 04/02/21 01:57 86 18 123/80 04/02/21 00:19 36.6 C 96 H 16 205/93 H Pulse Ox 04/02/21 07:50 94 04/02/21 06:28 95 04/02/21 05:00 91 04/02/21 04:30 93 04/02/21 04:00 04/02/21 03:44 96 04/02/21 01:57 92 04/02/21 00:19 95
[2021-04-02] MEDS ORDERED: PANTOprazole 40 MG in SYRINGE 0 ML IV SCH ×2 (11:00→21:00)
[2021-04-02] MEDS: NSS + 20MEQ KCL 20 MEQ/1,000 ML BAG IV SCH ×2 (11:41→19:29)
[2021-04-02 12:14] LABS: Hematocrit (blood only) 40.3 % (42-52); Hemoglobin 13.7 g/dL (14.0-18.0)
--- NOTE | 2021-04-02 12:49 | Hospitalist Progress Note ---
Date of Service April 02, 2021 Assessment & Plan (1) Small bowel obstruction: Plan: Present on admission with abdominal discomfort associated with coffee-ground emesis and dark stool diarrhea. CT abd/pelvis showed dilated proximal to mid small bowel loops with decompressed distal ileal loops consistent with a small bowel obstruction. NGT was placed on admission with clear drainage Surgery on board Keep NPO for now Gastro on board for possible GI bleed but NGT drainage clear and Hgb stable at13.7 Continue IV PPI Will get a KUB in am DM type 2 Hba1c 7.2 Continue insulin sliding scale Continue monitor BS HTN Continue amlodipine Will monitor BP Code status Full code DVT px SCD for possible GI bleed Admission and Anticipated Discharge Date Admission Date: April 02, 2021 Subjective Pt was seen and examined with at bedside Pt said that he feels much better today He said that his last BM was yesterday He said that his abdominal improved Currently has NGT on placed Denies any chest pain, palpitation, dizziness and SOB Review of Systems Review of Systems: All systems reviewed & are unremarkable except as noted in Subjective Physical Exam Physical Exam: General- No acute distress Head- atraumatic Eyes- PERRL, EOMI, ENT- NGT in place Neck- supple, no JVD Lungs- clear to auscultation Heart- regular rhythm; no murmur Abdomen- normal bowel sounds, hyperactive bowel sound, +mild tenderness with palpation Extremities- no calf tenderness Neuro- alert, oriented x 3; PERRL, EOMI; no facial palsy; no dysarthria Skin- warm & dry Results & Data Results & Data ([facility]) Vital Signs (Past 12 Hours) Vital Signs Temp Pulse Pulse Pulse Resp BP BP 04/02/21 11:21 37.1 C 85 16 129/78 04/02/21 07:50 36.3 C L 84 18 141/87 H 04/02/21 06:28 36.8 C 84 20 139/91 04/02/21 05:00 81 17 147/94 H 04/02/21 04:30 91 H 151/89 H 04/02/21 04:00 87 16 04/02/21 03:44 100 H 20 180/101 H 04/02/21 01:57 86 18 123/80 Pulse Ox 04/02/21 11:21 93 04/02/21 07:50 94 04/02/21 06:28 95 04/02/21 05:00 91 04/02/21 04:30 93 04/02/21 04:00 04/02/21 03:44 96 04/02/21 01:57 92
[2021-04-02 18:08] LABS: Hematocrit (blood only) 40.7 % (42-52); Hemoglobin 13.9 g/dL (14.0-18.0)
[2021-04-03] MEDS: INSULIN ASPART 100 UNITS/ML 3 ML PEN SC SCH ×4 (00:06→17:02)
[2021-04-03] MEDS: NSS + 20MEQ KCL 20 MEQ/1,000 ML BAG IV SCH ×2 (03:28→13:43)
[2021-04-03 07:00] LABS: Basophils # (auto) 0.01 K/uL (0-0.2); Basophils % (auto) 0.1 %; Eosinophils # (auto) 0.09 K/uL (0-0.5); Eosinophils % (auto) 1.3 %; Hematocrit (blood only) 39.5 % (42-52); Hemoglobin 14.1 g/dL (14.0-18.0); Immature Granulocytes # (auto) 0.03 K/uL (0.00-0.02); Immature Granulocytes % (auto) 0.4 %; Lymphocytes # (auto) 1.25 K/uL (1.2-3.4); Lymphocytes % (auto) 18.3 %; Mean Corpuscular Hemoglobin 30.7 pg (25-34); Mean Corpuscular Hgb Conc 35.7 g/dL (32-36); Mean Corpuscular Volume 86.1 fL (80-100); Mean Platelet Volume 10.1 fL (7.4-10.4); Monocytes # (auto) 0.87 K/uL (0.11-0.59); Monocytes % (auto) 12.7 %; Neutrophils # (auto) 4.58 K/uL (1.4-6.5); Neutrophils % (auto) 67.2 %; Platelet Count 207 K/uL (130-400); RDW Coefficient of Variation 13.3 % (11.5-14.5); RDW Standard Deviation 42.3 fL (36.4-46.3); Red Blood Count 4.59 M/uL (4.7-6.1); White Blood Count 6.83 K/uL (4.8-10.8)
[2021-04-03 07:31] LABS: BUN Creatinine Ratio 9.5 (10-20); Creatinine Clr Calc Pharmacy 106.5 ml/min; Est GFR (African American) 112.6 ml/min; Est GFR (Non-African American) 97.2 ml/min; Potassium 3.6 mmol/L (3.5-5.1)
[2021-04-03] MEDS: amLODIPine BESYLATE 5 MG TAB PO SCH (07:50)
[2021-04-03] MEDS ORDERED: INSULIN GLARGINE SOLOSTAR 100 UNITS/ML 3 ML PEN SC SCH (09:00)
--- NOTE | 2021-04-03 10:02 | XRay Report ---
XR KUB/Abdomen 1 view CLINICAL HISTORY: sbo TECHNIQUE: 1 view of the abdomen was obtained. Comparison: None available at the time of this dictation. FINDINGS: Lung bases are unremarkable. The osseous structures are grossly unremarkable. The bowel gas pattern i s nonobstructive. A moderate amount of stool is noted within the large bowel. IMPRESSION: Nonobstructive bowel gas pattern. ACT 112: Negative or not required by law. Electronically signed by: Sebastien Bay M.D. 04/03/2021 10:01 AM
--- NOTE | 2021-04-03 10:06 | Communication Note ---
Date of Service: April 03, 2021 GI note: Chart reviewed. Pt had large brown stool this AM, KUB showed moderate amt of stool in colon but no obstruction. May advance diet as tolerated, trial clamp NGT and if tolerating can DC. He should be on daily bowel regimen such as Miralax 17g BID. GI to sign off; pls recall prn
[2021-04-03] MEDS ORDERED: Nursing to Pharmacy Communication SCH ×3 (10:30→13:45)
--- NOTE | 2021-04-03 13:06 | Surgery Progress Note ---
Date of Service April 03, 2021 Assessment & Plan (1) Small bowel obstruction: Plan: clinically doing better will d/c ngt and start diet. advance as tolerated. can be d/c'd home later today or tomorrow if tolerates diet. no surgical indications at this time. Admission and Anticipated Discharge Date Admission Date: April 02, 2021 Subjective pt seen. no pain or nausea. KUB improved. minimal/clear out of ngt. Physical Exam Constitutional: WD/WN, vitals as above no acute distress and not ill appearing Eyes: PERRL, conjunctivae normal, anicteric sclerae EOM intact bilaterally ENMT: external ear and nose normal, oropharynx normal Ears: no hearing impairment Neck: trachea midline, no thyromegaly Respiratory: normal respiratory effort; no respiratory distress and does not use accessory muscles Cardiovascular: Rate/Rhythm: regular rate and regular rhythm Gastrointestinal (Abdomen): soft. nt. nd. no palpable abnormality. Skin: no rashes, warm and dry Psychiatric: Orientation: alert, oriented x 3 and cooperative Results & Data ([facility]) Vital Signs (Past 12 Hours) Vital Signs Temp Pulse Pulse Resp BP Pulse Ox 04/03/21 11:21 37.3 C 98 H 18 150/92 H 93 04/03/21 07:10 36.7 C 82 18 141/77 H 96 04/03/21 06:15 84 04/03/21 03:17 36.8 C 81 20 131/78 96 PG Care Time/CCT Total # of Minutes Spent Total Time Spent with Patient: Total time spent is greater than 50% in coordination of care (as documented) at patient's floor/unit and/or counseling patient: Coding Level of Care Code 32588 Subseq Hosp Care Lvl 3 Diagnoses Small bowel obstruction K56.609
--- NOTE | 2021-04-03 13:47 | Hospitalist Progress Note ---
Date of Service April 03, 2021 Assessment & Plan (1) Small bowel obstruction: Plan: Present on admission with abdominal discomfort associated with coffee-ground emesis and dark stool diarrhea. CT abd/pelvis showed dilated proximal to mid small bowel loops with decompressed distal ileal loops consistent with a small bowel obstruction. NGT was placed on admission with clear drainage Surgery on board Keep NPO for now Gastro on board for possible GI bleed but NGT drainage clear and Hgb stable at13.7 Continue IV PPI Will get a KUB in am DM type 2 Hba1c 7.2 Continue insulin sliding scale Continue monitor BS HTN Continue amlodipine Will monitor BP Code status Full code DVT px SCD for possible GI bleed Admission and Anticipated Discharge Date Admission Date: April 02, 2021 Subjective Pt was seen and examined Lying in bed with no acute distress with at bedside Pt said that he feels fine Denies any abdominal pain, NV Review of Systems Review of Systems: All systems reviewed & are unremarkable except as noted in Subjective Physical Exam Physical Exam: General- No acute distress Head- atraumatic Eyes- PERRL, EOMI, ENT- NGT in place Neck- supple, no JVD Lungs- clear to auscultation Heart- regular rhythm; no murmur Abdomen- normal bowel sounds, hyperactive bowel sound, +mild tenderness with palpation Extremities- no calf tenderness Neuro- alert, oriented x 3; PERRL, EOMI; no facial palsy; no dysarthria Skin- warm & dry Results & Data Results & Data ([facility]) Vital Signs (Past 12 Hours) Vital Signs Temp Pulse Pulse Resp BP Pulse Ox 04/03/21 11:21 37.3 C 98 H 18 150/92 H 93 04/03/21 07:10 36.7 C 82 18 141/77 H 96 04/03/21 06:15 84 04/03/21 03:17 36.8 C 81 20 131/78 96
--- NOTE | 2021-04-03 18:06 | Discharge Summary ---
Date of Service April 03, 2021 Admission HPI Per Admitting Provider History obtained from patient, family, and records. Medical history significant for hypertension, hyperlipidemia, hemochromatosis, GERD, DM2 diet-controlled 3 days history of generalized abdominal pain with coffee-ground emesis and dark stool diarrhea. Sick contacts at age [employer] as per patient. Patient denies chest pain, S OB, fever, chills. No prior episodes. Denies OTC NSAID intake. NGT inserted at the ER for bowel obstruction on initial CT read. Medical History as above 2011 EGD possible Trevino's esophagus 2020 colonoscopy showed diverticulosis, internal hemorrhoids Surgical History : Dental surgery Family History : Hemochromatosis, hypertension, prostate cancer, hyperlipidemia Personal/Social history : Non-smoker, no EtOH intake, [employer] employee Admission Exam Per Admitting Provider GENERAL: Slightly anxious, no respiratory distress SKIN: Bronze skin, warm HEENT: [place] palpebral conjunctivae, no ptosis, dry buccal mucosa, NGT in place NECK : Supple, no tenderness CHEST : CTA, no tenderness HEART : RRR, no obvious murmurs ABDOMEN: Some distention, no overt tenderness RECTAL : Intact sphincter, dark stool (FOBT positive) EXTREMITIES : No LE swelling/tenderness, no other conspicuous deformities noted NEUROLOGIC : Coherent, no facial asymmetry, no other gross focality Principal Diagnosis 35 minutes Discharge Exam General- No acute distress Head- atraumatic Eyes- PERRL, EOMI, ENT- NGT in place Neck- supple, no JVD Lungs- clear to auscultation Heart- regular rhythm; no murmur Abdomen- normal bowel sounds, hyperactive bowel sound, +mild tenderness with palpation Extremities- no calf tenderness Neuro- alert, oriented x 3; PERRL, EOMI; no facial palsy; no dysarthria Skin- warm & dry Discharge Data Allergies Allergy/AdvReac Type Severity Reaction Status Date / Time No Known Allergies Allergy Unknown Verified 07/17/04 15:54 Consultations 04/02/21 03:47 ED Decision to Admit Stat 04/02/21 06:27 Consult Gastroenterology Routine 04/02/21 08:42 Consult General Surgery Routine Ordered Studies 04/02/21 00:54 CT abd pelvis IV con only Urgent XR KUB/Abdomen 1 view CLINICAL HISTORY: sbo TECHNIQUE: 1 view of the abdomen was obtained. Comparison: None available at the time of this dictation. FINDINGS: Lung bases are unremarkable. The osseous structures are grossly unremarkable. The bowel gas pattern is nonobstructive. A moderate amount of stool is noted within the large bowel. IMPRESSION: Nonobstructive bowel gas pattern. ACT 112: Negative or not required by law. Electronically signed by: Sebastien Bay M.D. 04/03/2021 10:01 AM Dictated:04/03/21 1000 Transcribed: 04/03/21 1000 Hospital Course (1) Small bowel obstruction: Present on admission with abdominal discomfort associated with coffee- ground emesis and dark stool diarrhea. CT abd/pelvis showed dilated proximal to mid small bowel loops with decompressed distal ileal loops consistent with a small bowel obstruction. NGT was placed on admission with clear drainage Surgery on board Keep NPO for now Gastro on board for possible GI bleed but NGT drainage clear and Hgb stable at13.7 Continue IV PPI Will get a KUB in am DM type 2 Hba1c 7.2 Continue insulin sliding scale Continue monitor BS HTN Continue amlodipine Will monitor BP Code status Full code DVT px SCD for possible GI bleed Total Time Total Time Spent Total Time Spent (In Minutes): 35 minutes Discharge Plan Discharge Items Patient Disposition: Home - Self-Care Reason For Visit: UGIB, SBO Discharge Diagnosis: Small bowel obstruction: Diabetes type 2 Hypertension Activity: Resume your previous activity Non-emergency contact: Primary Care Provider Call non-emergency contact if: you have any medication questions Follow-up/Referrals: Kristopher Maguire MD [Primary Care Provider] - (Date & Time 04/10/2021 11:00 AM Provider Kristopher Maguire III, MD Department [facility] ) Diet: Low Fiber Addtl Attending Provider Instructions: Follow up with your primary care provider 04/10/2021 11:00 AM Provider Kristopher Maguire III, MD Department [facility] Please advance diet as tolerated Continue monitor your blood sugar and bring blood sugar log at your next appointment with your provider Follow up health diabetes diet and limited concentrated sweet intake Check Hba1c in 3 months for your diabetes Seek medical attention if your symptoms reoccurs Pending Studies at Discharge: No Stand-Alone Forms: [employer], Work/School Release, Smoking Cessation Medications and DC Order Prescriptions: New polyethylene glycol 3350 [Miralax] 17 gram Powder In Packet 17 g PO BID Qty: 30 RF: 0 (DME) OneTouch Verio test strips Strip See Rx Instructions .Route Qty: 100 RF: 0 (DME) lancets [OneTouch Delica Lancets] 33 gauge misc See Rx Instructions .Route Qty: 100 RF: 0 Continued amlodipine 10 mg tablet 10 mg PO DAILY RF: 0 omeprazole 20 mg capsule,delayed release(DR/EC) 20 mg PO DAILY PRN (Reason: Heartburn) RF: 0 Discharge Orders: Discharge Order (Routine); Ordered 04/03/21 Ordered By: Ivan Szymanski/Other Patient Handouts: High Blood Sugar (Hyperglycemia), Managing Type 2 Diabetes, Exercise: Why Fitness Matters, Diabetes: Meal Planning Admission Data Admit Date/Time: 04/02/21 04:54 Attending Provider: Ivan Moyer Admit Provider: Clayton Amador Primary Care Provider: Kristopher Maguire Other Interventions: Discharge Summary Assessment (RN) Last Done: 04/03/21 15:44
[2021-04-03] MEDS ORDERED: POLYETHYLENE (MIRALAX) 17 GM PACK PO SCH (21:00)
== END 2021-04-03 18:07 | disposition home or self-care (01) | DRG 389 ==
LOC: ED 00:15 → 2N 04:54 → SUATTDRO 04:54 → 2N 05:44
DX: I10 Essential (primary) hypertension; K92.2 Gastrointestinal hemorrhage, unspecified; E11.9 Type 2 diabetes mellitus without complications; K56.609 Unspecified intestinal obstruction, unspecified as to partial versus complete obstruction; N20.0 Calculus of kidney; Z91.14 Patient's other noncompliance with medication regimen